=== PATIENT | male | born 1950 | race Caucasian/White ===

== ENCOUNTER 2017-04-01 14:42 | Inpatient (IN) | payer MEDICAID, OTHER ==
[2017-04-01] MEDS ORDERED: DUONEB 0.5 MG/3 MG ONE (14:56)
--- NOTE | 2017-04-01 15:01 | DR.SOBA ---
HPI - Time Seen Time seen: 15:15 - Primary Care Physician Primary Care Physician: joann - HPI Comment HPI Comment: NO FEVER. FEEL WEAK AND DEHYDRATED. HAVE LUNG CA. HIS RA O2 SAT IN 70S. NOT ON HOME OXYGEN. PATIENT HAVE ANOREXIA. - Complaints Chief Complaint Doctors Comments: PATIENT HERE IN ED VIA EMS WITH SOB, NAUSEA AND VOMITING THAT STARTED TODAY. Chief Complaint:: patient stated he has lung ca, he stated he started having shortness of breath, chest pain and vomiting. - Reviewed Nurses Notes Reviewed: Yes - Source History Provided: Patient, EMS - Mode of Arrival Mode of Arrival: EMS - Timing Onset of Chief Complaint: 04/01/17 - Duration Duration: Hours - Context Onset:: At Rest, With Light Exertion PE Risk Factors:: None (CHRONIC ILL STATE.) History of:: COPD Currently on:: Inhaled Bronchodilators Prehospital Care:: Inhaled B2 - Modifying Factors Worsens:: Exertion, Lying Flat Improves:: Inhaler - Associated Signs and Symptoms Associated Signs and Symptoms: Wheeze, Cough, Nasal Congestion, Chest Pain - If Chest Pain Quality: Sharp Location: Right Upper Chest, Right Lower Chest, Left Upper Chest, Left Lower Chest, Substernal, Chest Wall - If Cough Cough: Productive, Yellow PMH - PMH Past Medical History: Yes Past Medical History: COPD Past Medical History Comment: lung ca Past Surgical History: Yes Surgical History: Ortho Surgery - Family History History of Family Medical Conditions: Yes Family Medical History: Diabetes Mellitus, Cancer, [place] - Social History Does patient currently use any type of tobacco product: No Have you used tobacco products in the last 12 months: No Type of Tobacco Use: Cigarettes Does any household member use tobacco: No Alcohol Use: None Do you use any recreational Drugs:: No Lives With: Family Lives Where: Home - infectious screening In the last 2 months have you had wt loss of >10#?: NO Have you had fever, night sweats or hemotysis?: No Have you traveled outside the country in the last 6 months?: No Isolation: Standard ROS - Review of Systems Constitutional: Weakness, Fatigue, Loss of Appetite. negative: Chills, Diaphoresis, Fever Eyes: negative: Eye Pain, Discharge ENTM: Nose Congestion. negative: Ear Pain, Nose Discharge, Throat Pain Respiratoy: Productive Cough, Short of Breath, Wheezing. negative: Hemoptysis Cardiovascular: Chest Pain Gastrointestinal/Abdominal: Abdominal Pain, Nausea, Vomiting Genitourinary: negative: Dysuria, Frequency, Hematuria Neurological: Headache, Weakness, Dizziness, Problems Walking Musculoskeletal: Joint Pain, Muscle Pain Integumentary: Dryness Endocrine: No Symptoms Reported All Other Systems: Reviewed and Negative PE - Vital Signs Vitals: Temperature 98.6 F Pulse Rate 116 Respiratory Rate 16 Blood Pressure [Left Arm] 142/79 Blood Pressure [Right Arm] 128/82 Blood Pressure 121/80 O2 Sat by Pulse Oximetry 100 - General Limitations: No Limitations General Appearance: Alert - Head Head Exam: Normal Inspection - Eyes Eye exam: Normal Appearance, PERRL, EOMI - ENT ENT Exam: Normal Oropharynx, Normal External Ear Exam, TM's Normal Bilaterally - Neck Neck Exam: Trachea Midline. negative: Tenderness, Meningismus, Lymphadenopathy - Chest Chest Inspection: Symmetric Chest Wall Rise - Respiratory Respiratory Exam: Accessory Muscle Use, Respiratory Distress Respiratory Exam: Bilateral Wheezing, Bilateral Rhonchi, Upper Wheezing, Upper Rhonchi, Lower Wheezing, Lower Rhonchi - Cardiovascular Cardiovascular Exam: Regular Rate, Normal Rhythm, Normal Heart Sounds - Abdominal Exam Abdominal Exam: Normal Bowel Sounds, Soft. negative: Tenderness - Extremities Extremities Exam: Normal Inspection. negative: Calf Tenderness - Back Back Exam: Paraspinal Tenderness - Neurologic Neurological Exam: Alert, Oriented X3. negative: Motor Sensory Deficit - Psychiatric Psychiatric Exam: Anxious - Skin Skin Exam: Erythema MDM - Additional Information Obtained Additional Information Obtained From: Family - Differential Diagnosis Differential Diagnosis: Bronchitis, CHF, COPD, Mycardial Infarction, Pneumonia, Pneumothorax, Pulmonary embolism, Respiratory Failure Course - Treatment Treatment: SEE ORDERS, NEBRX, IV FLUIDS, IV ANTIBIOTICS AND IV SOLUMEDROL IN ED. - Reevaluation 1st: Improved - Education/Counseling Education/Counseling: Patient, Family, Education Educated On: Treatment, Diagnosis, Needs for Follow Up (SEE ORDERS. NEB TREATMENT, IV FLUIDS AND IV STERIOD AND ABTIOTICS IN ED.) ROR - Labs Reviewed Result Diagrams: 04/02/17 02:20 04/02/17 02:20 Laboratory: WBC 10.9 X10^3/uL (3.6-10.0) H 04/02/17 02:20 RBC 3.81 X10^6/uL (4.7-6.0) L 04/02/17 02:20 Hgb 9.9 g/dL (13.5-18.0) L 04/02/17 02:20 Hct 29.6 % (42.0-54.0) L 04/02/17 02:20 MCV 77.7 fL (80.0-100.0) L 04/02/17 02:20 MCH 25.9 pg (27.0-34.0) L 04/02/17 02:20 MCHC 33.3 g/dL (33.0-35.0) 04/02/17 02:20 RDW 17.1 % (11.6-16.5) H 04/02/17 02:20 Plt Count 138 X10^3/uL (150.0-450.0) L 04/02/17 02:20 Plt Count Comment Adequate (ADEQUATE) 04/02/17 02:20 MPV 7.3 fL (7.4-11.0) L 04/02/17 02:20 Neut % 96.2 % (42.0-75.0) H 04/02/17 02:20 Lymph % 1.6 % (21.0-51.0) L 04/02/17 02:20 [place] % 2.1 % (0.0-13.0) 04/02/17 02:20 Eos % 0.0 % (0.9-2.9) L 04/02/17 02:20 Baso % 0.1 % (0.2-1.0) L 04/02/17 02:20 Neut # 10.5 x10^3/uL (2.2-4.8) H 04/02/17 02:20 Lymph # 0.2 X10^3/uL (1.3-2.9) L 04/02/17 02:20 [place] # 0.2 x10^3/uL (0.3-0.8) L 04/02/17 02:20 Eos # 0.0 x10^3/uL (0.0-0.2) 04/02/17 02:20 Baso # 0.0 X10^3/uL (0.0-0.1) 04/02/17 02:20 Absolute Nucleated RBC 0.1 /100WBC 04/02/17 02:20 Total Counted 100 04/02/17 02:20 Neutrophils % (Manual) 65 % (39-76) 04/02/17 02:20 Band Neutrophils % 32 % (0-10) H 04/02/17 02:20 Lymphocytes % (Manual) 1 % (13-43) L 04/02/17 02:20 Monocytes % (Manual) 2 % (4-9) L 04/02/17 02:20 Plt Morphology Comment Normal (NORMAL) 04/02/17 02:20 RBC Morphology Abnormal (NORMAL) 04/02/17 02:20 Hypochromasia Slight A 04/02/17 02:20 Microcytosis Slight A 04/02/17 02:20 INR Target Range - 04/01/17 15:03 INR 1.13 (0.8-1.3) 04/01/17 15:03 PTT 31.2 SECONDS (22.9-36.5) 04/01/17 15:03 PTT Comment - 04/01/17 15:03 Sample Site Rb 04/01/17 23:50 ABG pH 7.370 (7.35-7.45) 04/01/17 23:50 ABG pCO2 48.0 mmHg (35.0-45.0) H 04/01/17 23:50 ABG pO2 217.0 mmHg (80.0-100.0) H 04/01/17 23:50 ABG HCO3 27.7 mmol/L (22-26) H 04/01/17 23:50 ABG O2 Saturation 100.0 % (90-100) 04/01/17 23:50 ABG Base Excess 1.8 mmol/L (-2.0-2.0) 04/01/17 23:50 Omi Test Na 04/01/17 23:50 A-a Gradient Not Reportable 04/01/17 23:50 FiO2 100 04/01/17 23:50 Blood Gas Comments Oleg abg well-mtf 04/01/17 23:50 Sodium 141 mmol/L (136-145) 04/02/17 02:20 Corrected Sodium 143 mmol/L (136-145) 04/02/17 02:20 Potassium 3.5 mmol/L (3.5-5.1) 04/02/17 02:20 Chloride 105 mmol/L (98-107) 04/02/17 02:20 Carbon Dioxide 26.0 mmol/L (21-32) 04/02/17 02:20 BUN 17 mg/dL (7-18) 04/02/17 02:20 Creatinine 1.05 mg/dL (0.70-1.30) 04/02/17 02:20 Est GFR (MDRD) Af Amer > 60 (>60) 04/02/17 02:20 Est GFR (MDRD) Non-Af > 60 (>60) 04/02/17 02:20 Glucose 166 mg/dL (65-99) H 04/02/17 02:20 Calcium 7.8 mg/dL (8.5-10.1) L 04/02/17 02:20 Corrected Calcium 9.2 mg/dL (8.5-10.1) 04/02/17 02:20 Total Bilirubin 0.30 mg/dL (0.2-1.0) 04/02/17 02:20 AST 15 Units/L (15-37) 04/02/17 02:20 ALT 11 Units/L (12-78) L 04/02/17 02:20 Alkaline Phosphatase 65 Units/L (46-116) 04/02/17 02:20 Creatine Kinase 40 Units/L (39-308) 04/02/17 02:20 CK-MB (CK-2) 1.0 ng/mL (0-4.0) 04/02/17 02:20 CK/CKMB % Calc 2.5 % (<4) 04/02/17 02:20 Troponin I 0.10 ng/mL (0-1.5) 04/02/17 02:20 B-Natriuretic Peptide 13.8 pg/mL (0-79) 04/01/17 15:10 Total Protein 5.8 g/dL (6.4-8.2) L 04/02/17 02:20 Albumin 2.3 g/dL (3.4-5.0) L 04/02/17 02:20 Globulin 3.5 g/dL (2.5-4.5) 04/02/17 02:20 Albumin/Globulin Ratio 0.7 Ratio (1.1-2.1) L 04/02/17 02:20 Specimen Type Clean catch urine 04/01/17 21:36 Urine Color Yellow (YELLOW) 04/01/17 21:36 Urine Appearance Hazy (CLEAR) 04/01/17 21:36 Urine pH 5.0 (5.0 - 8.0) 04/01/17 21:36 Ur Specific [place] 1.025 (1.000-1.030) 04/01/17 21:36 Urine Protein 3+ (NEGATIVE) 04/01/17 21:36 Urine Glucose (UA) Negative (NEGATIVE) 04/01/17 21:36 Urine Ketones 1+ (NEGATIVE) 04/01/17 21:36 Urine Occult Blood 5+ (NEGATIVE) 04/01/17 21:36 Urine Nitrite Negative (NEGATIVE) 04/01/17 21:36 Urine Bilirubin Negative (NEGATIVE) 04/01/17 21:36 Urine Urobilinogen Normal (NORMAL) 04/01/17 21:36 Ur Leukocyte Esterase 2+ (NEGATIVE) 04/01/17 21:36 Urine RBC 40-50 /HPF (NEGATIVE) 04/01/17 21:36 Urine WBC 20-30 /HPF (NEGATIVE) 04/01/17 21:36 Ur Squamous Epith Cells Rare /HPF (NEGATIVE) 04/01/17 21:36 Calcium Oxalate Crystal Few /HPF (NEGATIVE) 04/01/17 21:36 Amorphous Sediment 1+ /HPF (NEGATIVE) 04/01/17 21:36 Urine Bacteria 1+ /HPF (NEGATIVE) 04/01/17 21:36 Urine Mucus Few /HPF (NEGATIVE) 04/01/17 21:36 Ur Culture Indicated? Yes/culture set up 04/01/17 21:36 - XRAY XRAY Interpreted by: Radiologist XRAY Findings: REPORT DISCUSS WITH PATIENT. - EKG Rhythm: ST (EKG NOTED) - Diagnosis Discharge Problem: COPD exacerbation, Bronchitis, Respiratory disease, Gastroenteritis, Dehydration Chest pain Qualifiers: Chest pain type: intercostal pain Qualified Code(s): R07.82 - Intercostal pain - Discharge Plan Disposition: 09 ADMITTED INPATIENT Condition: Stable - Follow ups/Referrals - Instructions
[2017-04-01 15:02] VITALS: BMI 16.5
[2017-04-01] MEDS ORDERED: DUONEB 0.5 MG/3 MG NEB ONE (15:06)
[2017-04-01] MEDS: NS 1000 ML 1,000 ML IV SCH ×2 (15:19→23:00)
[2017-04-01 15:34] LABS: BASOPHILS % (AUTO) 0.2 % (0.2-1.0); EOSINOPHILS # (AUTO) 0.2 x10^3/uL (0.0-0.2); EOSINOPHILS % (AUTO) 1.4 % (0.9-2.9); HEMOGLOBIN 11.6 g/dL (13.5-18.0); LYMPHOCYTES # (AUTO) 1.7 X10^3/uL (1.3-2.9); LYMPHOCYTES % (AUTO) 12.2 % (21.0-51.0); MEAN CORPUSCULAR HGB CONC 32.3 g/dL (33.0-35.0); MEAN CORPUSCULAR VOLUME 77.6 fL (80.0-100.0); MEAN PLATELET VOLUME 7.1 fL (7.4-11.0); MONOCYTES # (AUTO) 0.5 x10^3/uL (0.3-0.8); MONOCYTES % (AUTO) 3.7 % (0.0-13.0); NEUTROPHILS # (AUTO) 11.5 x10^3/uL (2.2-4.8); NEUTROPHILS % (AUTO) 82.5 % (42.0-75.0); PLATELET COUNT 219 X10^3/uL (150.0-450.0); RED BLOOD COUNT 4.64 X10^6/uL (4.7-6.0); RED CELL DISTRIBUTION WIDTH 17.7 % (11.6-16.5)
[2017-04-01 15:46] LABS: HYPOCHROMASIA 1+; MICROCYTOSIS 1+; PLATELET MORPHOLOGY COMMENT NORMAL (NORMAL)
[2017-04-01 16:00] LABS: ALANINE AMINOTRANSFERASE 13 Units/L (12-78); ALBUMIN 2.7 g/dL (3.4-5.0); ALKALINE PHOSPHATASE 87 Units/L (46-116); ASPARTATE AMINO TRANSFERASE 15 Units/L (15-37); BLOOD UREA NITROGEN 16 mg/dL (7-18); CALCIUM 8.5 mg/dL (8.5-10.1); CARBON DIOXIDE 26.6 mmol/L (21-32); CHLORIDE 106 mmol/L (98-107); CKMB % 4.2 % (<4); COR CA(FOR HYPOALB) 9.5 mg/dL (8.5-10.1); COR NA(FOR HYPERGLY) 144 mmol/L (136-145); CREATINE KINASE 24 Units/L (39-308); CREATINE KINASE MB < 1.0 ng/mL (0-4.0); CREATININE 1.05 mg/dL (0.70-1.30); SODIUM 142 mmol/L (136-145); TOTAL PROTEIN 6.7 g/dL (6.4-8.2); TROPONIN I < 0.02 ng/mL (0-1.5); eGFR BLACK RACES > 60 (>60); eGFR NON BLACK RACES > 60 (>60)
[2017-04-01 16:01] LABS: B-TYPE NATRIURETIC PEPTIDE 13.8 pg/mL (0-79)
[2017-04-01 16:02] LABS: GLUCOSE 193 mg/dL (65-99)
--- NOTE | 2017-04-01 16:25 | RAD ---
HISTORY: 67-year-old male with chest pain. Study: Frontal view of the chest. Comparison: CT thorax June 15, 2015, chest radiographs July 20, 2016. Findings: Right chest wall chemo port via IJ approach is stable. Surgical clips overlie left sherman thorax. The trachea is midline. The cardiac silhouette is unremarkable. Focal consolidation within the sup erior segment left lower lobe, likely secondary to known mass lesion. Compensatory hyperinflation of the right sherman thorax is observed. No other areas of consolidation, effusion or pneumothorax. Soft tissues are unremarkable. Osseus structures are unremarkable. IMPRESSION: 1. Focal consolidation in the superior aspect of the left lower lobe, likely secondary to known mas s with compensatory hyperinflation of the right sherman thorax and no other focal consolidation, effusi on or pneumothorax. Reported By:
[2017-04-01] MEDS ORDERED: DUONEB 0.5 MG/3 MG NEB SCH (17:00)
[2017-04-01 17:43] LABS: ABG BASE EXCESS -1.6 mmol/L (-2.0-2.0); ABG HCO3 25.2 mmol/L (22-26)
[2017-04-01] MEDS: LEVAQUIN PREMIX IV 500 MG 500 MG/100 ML BAG IV SCH (17:56)
[2017-04-01] MEDS: FORTAZ or TAZICEF INJ 1 GM in NS 50 ML IV + SPIKE MINIBAG* 50 ML IV SCH ×2 (17:56→23:06)
[2017-04-01] MEDS ORDERED: PROVENTIL NEB TX 0.083% 2.5MG/ 3ML NEB PRN (19:11)
[2017-04-01] MEDS ORDERED: ZOFRAN INJ 4 MG VIAL IVP PRN (19:41)
[2017-04-01] MEDS ORDERED: MIRTAZAPINE 30 MG PO SCH (21:00)
[2017-04-01] MEDS: BROVANA IN SCH (21:02)
[2017-04-01] MEDS: PULMICORT NEB TX 0.5 MG NEB SCH (21:02)
[2017-04-01 21:08] LABS: CKMB % 2.7 % (<4); TROPONIN I 0.19 ng/mL (0-1.5)
[2017-04-01] MEDS: HYCODAN SYRUP PO SCH (21:22)
[2017-04-01] MEDS: REMERON PO SCH (21:22)
[2017-04-01] MEDS ORDERED: SOLU-Medrol 125 MG VIAL IVP ONE (21:43)
[2017-04-01 21:53] LABS: BILIRUBIN,URINE NEGATIVE (NEGATIVE); BLOOD/HEMOGLOBIN,URINE 5+ (NEGATIVE); GLUCOSE, URINE NEGATIVE (NEGATIVE); KETONES,URINE 1+ (NEGATIVE); LEUKOCYTE ESTERASE ,URINE 2+ (NEGATIVE); NITRITES,URINE NEGATIVE (NEGATIVE); PROTEIN,URINE 3+ (NEGATIVE); UROBILINOGEN,URINE NORMAL (NORMAL)
[2017-04-01 22:04] LABS: AMORPHOUS SEDIMENT,UR 1+ /HPF (NEGATIVE); APPEARANCE,URINE HAZY (CLEAR); BACTERIA,URINE 1+ /HPF (NEGATIVE); CALCIUM OXALATE CRYSTALS,UR FEW /HPF (NEGATIVE); COLOR,URINE YELLOW (YELLOW); MUCUS,URINE FEW /HPF (NEGATIVE); RBC,URINE 40-50 /HPF (NEGATIVE); SQUAMOUS EPITHELIAL CELL,UR RARE /HPF (NEGATIVE)
[2017-04-01] MEDS: SOLU-Medrol 125 MG VIAL IVP SCH (23:07)
[2017-04-02 00:11] LABS: ABG BASE EXCESS 1.8 mmol/L (-2.0-2.0); ABG HCO3 27.7 mmol/L (22-26); FRACTIONATED INSPIRED OXYGEN 100
[2017-04-02] MEDS: DUONEB 0.5 MG/3 MG NEB SCH ×4 (00:59→16:59)
[2017-04-02] MEDS ORDERED: DUONEB 0.5 MG/3 MG NEB SCH ×2 (01:00)
[2017-04-02 03:28] LABS: CKMB % 2.5 % (<4); TROPONIN I 0.1 ng/mL (0-1.5)
[2017-04-02 04:54] LABS: ALANINE AMINOTRANSFERASE 11 Units/L (12-78); ALBUMIN 2.3 g/dL (3.4-5.0); ALKALINE PHOSPHATASE 65 Units/L (46-116); ASPARTATE AMINO TRANSFERASE 15 Units/L (15-37); BLOOD UREA NITROGEN 17 mg/dL (7-18); CALCIUM 7.8 mg/dL (8.5-10.1); CHLORIDE 105 mmol/L (98-107); COR CA(FOR HYPOALB) 9.2 mg/dL (8.5-10.1); COR NA(FOR HYPERGLY) 143 mmol/L (136-145); CREATININE 1.05 mg/dL (0.70-1.30); GLUCOSE 166 mg/dL (65-99); SODIUM 141 mmol/L (136-145); TOTAL PROTEIN 5.8 g/dL (6.4-8.2); eGFR BLACK RACES > 60 (>60); eGFR NON BLACK RACES > 60 (>60)
[2017-04-02 04:59] LABS: BASOPHILS % (AUTO) 0.1 % (0.2-1.0); HEMATOCRIT 29.6 % (42.0-54.0); HEMOGLOBIN 9.9 g/dL (13.5-18.0); LYMPHOCYTES # (AUTO) 0.2 X10^3/uL (1.3-2.9); LYMPHOCYTES % (AUTO) 1.6 % (21.0-51.0); MEAN CORPUSCULAR HEMOGLOBIN 25.9 pg (27.0-34.0); MEAN CORPUSCULAR HGB CONC 33.3 g/dL (33.0-35.0); MEAN CORPUSCULAR VOLUME 77.7 fL (80.0-100.0); MEAN PLATELET VOLUME 7.3 fL (7.4-11.0); MONOCYTES # (AUTO) 0.2 x10^3/uL (0.3-0.8); MONOCYTES % (AUTO) 2.1 % (0.0-13.0); NEUTROPHILS # (AUTO) 10.5 x10^3/uL (2.2-4.8); NEUTROPHILS % (AUTO) 96.2 % (42.0-75.0); PLATELET COUNT 138 X10^3/uL (150.0-450.0); RED BLOOD COUNT 3.81 X10^6/uL (4.7-6.0); RED CELL DISTRIBUTION WIDTH 17.1 % (11.6-16.5); WHITE BLOOD COUNT 10.9 X10^3/uL (3.6-10.0)
[2017-04-02 05:23] LABS: BAND NEUTROPHILS % 32 % (0-10); HYPOCHROMASIA SLIGHT; PLATELET MORPHOLOGY COMMENT NORMAL (NORMAL)
[2017-04-02 05:24] LABS: MICROCYTOSIS SLIGHT
[2017-04-02] MEDS: FORTAZ or TAZICEF INJ 1 GM in NS 50 ML IV + SPIKE MINIBAG* 50 ML IV SCH ×3 (05:55→22:00)
[2017-04-02] MEDS: SOLU-Medrol 125 MG VIAL IVP SCH ×3 (05:55→22:05)
[2017-04-02] MEDS: AFATINIB DIMALEATE 40 MG PO SCH ×2 (07:15→08:28)
--- NOTE | 2017-04-02 07:19 | RAD ---
HISTORY: Shortness of breath Study: Chest one view Comparison: April 01, 2017 Findings: There is a port present on the right. The heart is within normal limits in size. The right lung is c lear. Perihilar consolidation is present in the left upper lobe likely secondary to the patient's kn own left lung mass with some surround infiltrate and atelectasis. Pleural-parenchymal scarring is pr esent in the left lung base. No definite pleural effusions are identified. The bony thorax is unrema rkable. IMPRESSION: Left perihilar consolidation likely due to the patient's known lung mass with some surrounding infil trate possibly post obstructive pneumonia Pleural-parenchymal scarring left lung base Reported By:
[2017-04-02] MEDS: PULMICORT NEB TX 0.5 MG NEB SCH ×2 (08:42→20:42)
[2017-04-02] MEDS: BROVANA IN SCH ×2 (08:42→20:41)
[2017-04-02] MEDS: NS 1000 ML 1,000 ML IV SCH ×2 (09:23→16:14)
[2017-04-02] MEDS: LEVAQUIN PREMIX IV 500 MG 500 MG/100 ML BAG IV SCH (09:24)
[2017-04-02] MEDS: ARIMIDEX PO SCH (09:24)
[2017-04-02] MEDS: LIPITOR TAB 10 MG PO SCH ×2 (09:24→09:25)
[2017-04-02] MEDS: HYCODAN SYRUP PO SCH ×2 (09:24→20:31)
[2017-04-02] MEDS ORDERED: MAALOX or MYLANTA PO PRN (16:30)
--- NOTE | 2017-04-02 17:57 | PCM.PROG ---
Progress Note - Progress Note for Day of Date: 04/02/17 - Subjective Subjective: 67WM ADMITTED ON SUNDAY WITH RESP DISTRESS, COPD EXACERBATION. PT HAS HX OF SEVERE COPD AND LUNG CA. PLAN TO CONTINUE IV ABTX, RESP THERAPY AND SPUTUM CULTURES. REPEAT AM LABS - Past Medical Family Social History Past Med/Fam/Surg Hx: No changes since H&P Allergies: Allergies No Known Drug Allergies Allergy (Verified 04/01/17 15:23) - Review of Systems ROS: No change since H&P - Vital Signs and I&O's Vital Signs: Temperature 98.9 F Pulse Rate [Left Brachial] 82 Pulse Rate 92 Respiratory Rate 17 Blood Pressure [Left Arm] 97/57 Blood Pressure [Right Arm] 151/87 O2 Sat by Pulse Oximetry 97 Intake and Output: Intake & Output 03/31/17 04/01/17 04/02/17 04/03/17 11:59 11:59 11:59 11:59 Intake Total 3161 1912 Output Total 750 200 Balance 2411 1712 - Physical Exam Oriented: Normal Eyes: Normal Ear: Normal Nose: Normal Throat: Dry Respiratory: Diminished Cardiovascular: Tachycardia : Normal Auscultation: Bowel Sounds: Normal Palpation: Normal Tenderness: Normal Skin: Decreased Turgur Musculoskeletal: Back:Lumbar Psychiatric: Anxiety Speech Pattern: Clear - Laboratory and Diagnostics Result Diagrams: 04/02/17 02:20 04/02/17 02:20 Labs: 04/01/17 21:36 Urine,Clean Catch Urine Culture - Preliminary Laboratory WBC 10.9 X10^3/uL (3.6-10.0) H 04/02/17 02:20 RBC 3.81 X10^6/uL (4.7-6.0) L 04/02/17 02:20 Hgb 9.9 g/dL (13.5-18.0) L 04/02/17 02:20 Hct 29.6 % (42.0-54.0) L 04/02/17 02:20 MCV 77.7 fL (80.0-100.0) L 04/02/17 02:20 MCH 25.9 pg (27.0-34.0) L 04/02/17 02:20 MCHC 33.3 g/dL (33.0-35.0) 04/02/17 02:20 RDW 17.1 % (11.6-16.5) H 04/02/17 02:20 Plt Count 138 X10^3/uL (150.0-450.0) L 04/02/17 02:20 Plt Count Comment Adequate (ADEQUATE) 04/02/17 02:20 MPV 7.3 fL (7.4-11.0) L 04/02/17 02:20 Neut % 96.2 % (42.0-75.0) H 04/02/17 02:20 Lymph % 1.6 % (21.0-51.0) L 04/02/17 02:20 [place] % 2.1 % (0.0-13.0) 04/02/17 02:20 Eos % 0.0 % (0.9-2.9) L 04/02/17 02:20 Baso % 0.1 % (0.2-1.0) L 04/02/17 02:20 Neut # 10.5 x10^3/uL (2.2-4.8) H 04/02/17 02:20 Lymph # 0.2 X10^3/uL (1.3-2.9) L 04/02/17 02:20 [place] # 0.2 x10^3/uL (0.3-0.8) L 04/02/17 02:20 Eos # 0.0 x10^3/uL (0.0-0.2) 04/02/17 02:20 Baso # 0.0 X10^3/uL (0.0-0.1) 04/02/17 02:20 Absolute Nucleated RBC 0.1 /100WBC 04/02/17 02:20 Total Counted 100 04/02/17 02:20 Neutrophils % (Manual) 65 % (39-76) 04/02/17 02:20 Band Neutrophils % 32 % (0-10) H 04/02/17 02:20 Lymphocytes % (Manual) 1 % (13-43) L 04/02/17 02:20 Monocytes % (Manual) 2 % (4-9) L 04/02/17 02:20 Plt Morphology Comment Normal (NORMAL) 04/02/17 02:20 RBC Morphology Abnormal (NORMAL) 04/02/17 02:20 Hypochromasia Slight A 04/02/17 02:20 Microcytosis Slight A 04/02/17 02:20 INR Target Range - 04/01/17 15:03 INR 1.13 (0.8-1.3) 04/01/17 15:03 PTT 31.2 SECONDS (22.9-36.5) 04/01/17 15:03 PTT Comment - 04/01/17 15:03 Sample Site Rbra 04/01/17 23:50 ABG pH 7.370 (7.35-7.45) 04/01/17 23:50 ABG pCO2 48.0 mmHg (35.0-45.0) H 04/01/17 23:50 ABG pO2 217.0 mmHg (80.0-100.0) H 04/01/17 23:50 ABG HCO3 27.7 mmol/L (22-26) H 04/01/17 23:50 ABG O2 Saturation 100.0 % (90-100) 04/01/17 23:50 ABG Base Excess 1.8 mmol/L (-2.0-2.0) 04/01/17 23:50 Omi Test Na 04/01/17 23:50 A-a Gradient Not Reportable 04/01/17 23:50 FiO2 100 04/01/17 23:50 Blood Gas Comments Oleg abg well-mtf 04/01/17 23:50 Sodium 141 mmol/L (136-145) 04/02/17 02:20 Corrected Sodium 143 mmol/L (136-145) 04/02/17 02:20 Potassium 3.5 mmol/L (3.5-5.1) 04/02/17 02:20 Chloride 105 mmol/L (98-107) 04/02/17 02:20 Carbon Dioxide 26.0 mmol/L (21-32) 04/02/17 02:20 BUN 17 mg/dL (7-18) 04/02/17 02:20 Creatinine 1.05 mg/dL (0.70-1.30) 04/02/17 02:20 Est GFR (MDRD) Af Amer > 60 (>60) 04/02/17 02:20 Est GFR (MDRD) Non-Af > 60 (>60) 04/02/17 02:20 Glucose 166 mg/dL (65-99) H 04/02/17 02:20 Calcium 7.8 mg/dL (8.5-10.1) L 04/02/17 02:20 Corrected Calcium 9.2 mg/dL (8.5-10.1) 04/02/17 02:20 Total Bilirubin 0.30 mg/dL (0.2-1.0) 04/02/17 02:20 AST 15 Units/L (15-37) 04/02/17 02:20 ALT 11 Units/L (12-78) L 04/02/17 02:20 Alkaline Phosphatase 65 Units/L (46-116) 04/02/17 02:20 Creatine Kinase 40 Units/L (39-308) 04/02/17 02:20 CK-MB (CK-2) 1.0 ng/mL (0-4.0) 04/02/17 02:20 CK/CKMB % Calc 2.5 % (<4) 04/02/17 02:20 Troponin I 0.10 ng/mL (0-1.5) 04/02/17 02:20 B-Natriuretic Peptide 13.8 pg/mL (0-79) 04/01/17 15:10 Total Protein 5.8 g/dL (6.4-8.2) L 04/02/17 02:20 Albumin 2.3 g/dL (3.4-5.0) L 04/02/17 02:20 Globulin 3.5 g/dL (2.5-4.5) 04/02/17 02:20 Albumin/Globulin Ratio 0.7 Ratio (1.1-2.1) L 04/02/17 02:20 Specimen Type Clean catch urine 04/01/17 21:36 Urine Color Yellow (YELLOW) 04/01/17 21:36 Urine Appearance Hazy (CLEAR) 04/01/17 21:36 Urine pH 5.0 (5.0 - 8.0) 04/01/17 21:36 Ur Specific [place] 1.025 (1.000-1.030) 04/01/17 21:36 Urine Protein 3+ (NEGATIVE) 04/01/17 21:36 Urine Glucose (UA) Negative (NEGATIVE) 04/01/17 21:36 Urine Ketones 1+ (NEGATIVE) 04/01/17 21:36 Urine Occult Blood 5+ (NEGATIVE) 04/01/17 21:36 Urine Nitrite Negative (NEGATIVE) 04/01/17 21:36 Urine Bilirubin Negative (NEGATIVE) 04/01/17 21:36 Urine Urobilinogen Normal (NORMAL) 04/01/17 21:36 Ur Leukocyte Esterase 2+ (NEGATIVE) 04/01/17 21:36 Urine RBC 40-50 /HPF (NEGATIVE) 04/01/17 21:36 Urine WBC 20-30 /HPF (NEGATIVE) 04/01/17 21:36 Ur Squamous Epith Cells Rare /HPF (NEGATIVE) 04/01/17 21:36 Calcium Oxalate Crystal Few /HPF (NEGATIVE) 04/01/17 21:36 Amorphous Sediment 1+ /HPF (NEGATIVE) 04/01/17 21:36 Urine Bacteria 1+ /HPF (NEGATIVE) 04/01/17 21:36 Urine Mucus Few /HPF (NEGATIVE) 04/01/17 21:36 Ur Culture Indicated? Yes/culture set up 04/01/17 21:36 - Plan (1) COPD exacerbation Status: Acute Plan: CONTINUE RESP THERAPY, BIPAP, SUPPLEMENTAL O2, V ATBX, SPUTUM CULTURE PENDING, SUPPORTIVE CARE, REPEAT AM LABS CXR. CARDIAC MONITORING (2) Respiratory disease Status: Acute (3) Lung cancer, lower lobe Status: Acute Qualifiers: Laterality: L
[2017-04-02] MEDS: REMERON PO SCH (20:31)
[2017-04-03] MEDS: DUONEB 0.5 MG/3 MG NEB SCH ×4 (01:01→17:01)
[2017-04-03] MEDS: NS 1000 ML 1,000 ML IV SCH ×5 (01:08→21:02)
[2017-04-03 05:48] LABS: ALANINE AMINOTRANSFERASE 11 Units/L (12-78); ALBUMIN 1.9 g/dL (3.4-5.0); ALKALINE PHOSPHATASE 55 Units/L (46-116); ASPARTATE AMINO TRANSFERASE 14 Units/L (15-37); BLOOD UREA NITROGEN 18 mg/dL (7-18); CALCIUM 7.6 mg/dL (8.5-10.1); CARBON DIOXIDE 25.6 mmol/L (21-32); CHLORIDE 111 mmol/L (98-107); COR CA(FOR HYPOALB) 9.3 mg/dL (8.5-10.1); COR NA(FOR HYPERGLY) 145 mmol/L (136-145); CREATININE 0.75 mg/dL (0.70-1.30); GLUCOSE 165 mg/dL (65-99); SODIUM 143 mmol/L (136-145); TOTAL PROTEIN 5.2 g/dL (6.4-8.2); eGFR BLACK RACES > 60 (>60); eGFR NON BLACK RACES > 60 (>60)
[2017-04-03 06:04] LABS: BASOPHILS % (AUTO) 0.1 % (0.2-1.0); HEMATOCRIT 26.3 % (42.0-54.0); HEMOGLOBIN 8.8 g/dL (13.5-18.0); LYMPHOCYTES # (AUTO) 0.2 X10^3/uL (1.3-2.9); LYMPHOCYTES % (AUTO) 2.2 % (21.0-51.0); MEAN CORPUSCULAR HGB CONC 33.6 g/dL (33.0-35.0); MEAN CORPUSCULAR VOLUME 77.3 fL (80.0-100.0); MEAN PLATELET VOLUME 7.2 fL (7.4-11.0); MONOCYTES # (AUTO) 0.4 x10^3/uL (0.3-0.8); MONOCYTES % (AUTO) 4.8 % (0.0-13.0); NEUTROPHILS # (AUTO) 8.2 x10^3/uL (2.2-4.8); NEUTROPHILS % (AUTO) 92.9 % (42.0-75.0); PLATELET COUNT 143 X10^3/uL (150.0-450.0); RED CELL DISTRIBUTION WIDTH 17.4 % (11.6-16.5); WHITE BLOOD COUNT 8.8 X10^3/uL (3.6-10.0)
[2017-04-03] MEDS: FORTAZ or TAZICEF INJ 1 GM in NS 50 ML IV + SPIKE MINIBAG* 50 ML IV SCH ×3 (06:13→21:54)
[2017-04-03] MEDS: SOLU-Medrol 125 MG VIAL IVP SCH ×2 (06:15→14:36)
[2017-04-03] MEDS: AFATINIB DIMALEATE 40 MG PO SCH ×2 (06:17→08:25)
[2017-04-03 06:43] LABS: PLATELET MORPHOLOGY COMMENT NORMAL (NORMAL)
--- NOTE | 2017-04-03 07:23 | RAD ---
HISTORY: Respiratory failure Study: Chest one view Comparison: April 02, 2017 Findings: The patient is rotated to the left. There is a port present on the right. The heart is within normal limits in size. No congestive heart failure is noted. The right lung is clear. Once again noted is perihilar consolidation in the left upper lobe with some surrounding infiltrate likely representing the patient's known lung mass and some postobstructive pneumonia. The appearance is unchanged when c ompared with the prior examination peer E there is pleural-parenchymal scarring in the left lung bas e and also likely a left pleural effusion which obscures the medial hemidiaphragm. The bony thorax i s unremarkable. IMPRESSION: No significant change from the prior examination Reported By:
[2017-04-03] MEDS: HYCODAN SYRUP PO SCH ×2 (08:24→21:02)
[2017-04-03] MEDS: LEVAQUIN PREMIX IV 500 MG 500 MG/100 ML BAG IV SCH (08:24)
[2017-04-03] MEDS: ARIMIDEX PO SCH (08:24)
[2017-04-03] MEDS: BROVANA IN SCH ×2 (09:00→21:09)
[2017-04-03] MEDS: PULMICORT NEB TX 0.5 MG NEB SCH ×2 (09:01→21:09)
--- NOTE | 2017-04-03 14:12 | PCM.PROG ---
Progress Note - Progress Note for Day of Date: 04/03/17 - Subjective Subjective: 67WM ADMITTED ON SUNDAY WITH RESP DISTRESS, COPD EXACERBATION. PT HAS HX OF SEVERE COPD AND LUNG CA. PT CO NAUSEA AND POOR APPETITE. PT WHEEZING IMPROVED FROM SUNDAY ASSESSMENT. PLAN TO CONTINUE IV ABTX, RESP THERAPY AND SPUTUM CULTURES. REPEAT AM LABS - Past Medical Family Social History Past Med/Fam/Surg Hx: No changes since H&P Allergies: Allergies No Known Drug Allergies Allergy (Verified 04/01/17 15:23) - Review of Systems ROS: No change since H&P - Vital Signs and I&O's Vital Signs: Temperature 98.3 F Pulse Rate [Left Brachial] 95 Pulse Rate 78 Respiratory Rate 15 Blood Pressure [Left Arm] 108/78 Blood Pressure [Right Arm] 151/87 O2 Sat by Pulse Oximetry 97 Intake and Output: Intake & Output 04/01/17 04/02/17 04/03/17 04/04/17 11:59 11:59 11:59 11:59 Intake Total 3161 4752 480 Output Total 750 600 800 Balance 2411 4152 -320 - Physical Exam Oriented: Normal Eyes: Normal Ear: Normal Nose: Normal Throat: Dry Respiratory: Diminished Cardiovascular: Tachycardia : Normal Auscultation: Bowel Sounds: Normal Tenderness: Normal Skin: Decreased Turgur Musculoskeletal: Back:Lumbar Psychiatric: Anxiety Speech Pattern: Clear - Laboratory and Diagnostics Result Diagrams: 04/03/17 03:40 04/03/17 03:40 Labs: 04/01/17 21:36 Urine,Clean Catch Urine Culture - Final Laboratory WBC 8.8 X10^3/uL (3.6-10.0) 04/03/17 03:40 RBC 3.40 X10^6/uL (4.7-6.0) L 04/03/17 03:40 Hgb 8.8 g/dL (13.5-18.0) L 04/03/17 03:40 Hct 26.3 % (42.0-54.0) L 04/03/17 03:40 MCV 77.3 fL (80.0-100.0) L 04/03/17 03:40 MCH 26.0 pg (27.0-34.0) L 04/03/17 03:40 MCHC 33.6 g/dL (33.0-35.0) 04/03/17 03:40 RDW 17.4 % (11.6-16.5) H 04/03/17 03:40 Plt Count 143 X10^3/uL (150.0-450.0) L 04/03/17 03:40 Plt Count Comment Adequate (ADEQUATE) 04/03/17 03:40 MPV 7.2 fL (7.4-11.0) L 04/03/17 03:40 Neut % 92.9 % (42.0-75.0) H 04/03/17 03:40 Lymph % 2.2 % (21.0-51.0) L 04/03/17 03:40 [place] % 4.8 % (0.0-13.0) 04/03/17 03:40 Eos % 0.0 % (0.9-2.9) L 04/03/17 03:40 Baso % 0.1 % (0.2-1.0) L 04/03/17 03:40 Neut # 8.2 x10^3/uL (2.2-4.8) H 04/03/17 03:40 Lymph # 0.2 X10^3/uL (1.3-2.9) L 04/03/17 03:40 [place] # 0.4 x10^3/uL (0.3-0.8) 04/03/17 03:40 Eos # 0.0 x10^3/uL (0.0-0.2) 04/03/17 03:40 Baso # 0.0 X10^3/uL (0.0-0.1) 04/03/17 03:40 Absolute Nucleated RBC 0.0 /100WBC 04/03/17 03:40 Total Counted 100 04/03/17 03:40 Neutrophils % (Manual) 91 % (39-76) H 04/03/17 03:40 Band Neutrophils % 32 % (0-10) H 04/02/17 02:20 Lymphocytes % (Manual) 5 % (13-43) L 04/03/17 03:40 Monocytes % (Manual) 3 % (4-9) L 04/03/17 03:40 Eosinophils % (Manual) 1 % (0-6) 04/03/17 03:40 Plt Morphology Comment Normal (NORMAL) 04/03/17 03:40 RBC Morphology Normal (NORMAL) 04/03/17 03:40 Hypochromasia Slight A 04/02/17 02:20 Microcytosis Slight A 04/02/17 02:20 INR Target Range - 04/01/17 15:03 INR 1.13 (0.8-1.3) 04/01/17 15:03 PTT 31.2 SECONDS (22.9-36.5) 04/01/17 15:03 PTT Comment - 04/01/17 15:03 Sample Site Rbra 04/01/17 23:50 ABG pH 7.370 (7.35-7.45) 04/01/17 23:50 ABG pCO2 48.0 mmHg (35.0-45.0) H 04/01/17 23:50 ABG pO2 217.0 mmHg (80.0-100.0) H 04/01/17 23:50 ABG HCO3 27.7 mmol/L (22-26) H 04/01/17 23:50 ABG O2 Saturation 100.0 % (90-100) 04/01/17 23:50 ABG Base Excess 1.8 mmol/L (-2.0-2.0) 04/01/17 23:50 Omi Test Na 04/01/17 23:50 A-a Gradient Not Reportable 04/01/17 23:50 FiO2 100 04/01/17 23:50 Blood Gas Comments Oleg abg well-mtf 04/01/17 23:50 Sodium 143 mmol/L (136-145) 04/03/17 03:40 Corrected Sodium 145 mmol/L (136-145) 04/03/17 03:40 Potassium 3.6 mmol/L (3.5-5.1) 04/03/17 03:40 Chloride 111 mmol/L (98-107) H 04/03/17 03:40 Carbon Dioxide 25.6 mmol/L (21-32) 04/03/17 03:40 BUN 18 mg/dL (7-18) 04/03/17 03:40 Creatinine 0.75 mg/dL (0.70-1.30) 04/03/17 03:40 Est GFR (MDRD) Af Amer > 60 (>60) 04/03/17 03:40 Est GFR (MDRD) Non-Af > 60 (>60) 04/03/17 03:40 Glucose 165 mg/dL (65-99) H 04/03/17 03:40 Calcium 7.6 mg/dL (8.5-10.1) L 04/03/17 03:40 Corrected Calcium 9.3 mg/dL (8.5-10.1) 04/03/17 03:40 Total Bilirubin 0.20 mg/dL (0.2-1.0) 04/03/17 03:40 AST 14 Units/L (15-37) L 04/03/17 03:40 ALT 11 Units/L (12-78) L 04/03/17 03:40 Alkaline Phosphatase 55 Units/L (46-116) 04/03/17 03:40 Creatine Kinase 40 Units/L (39-308) 04/02/17 02:20 CK-MB (CK-2) 1.0 ng/mL (0-4.0) 04/02/17 02:20 CK/CKMB % Calc 2.5 % (<4) 04/02/17 02:20 Troponin I 0.10 ng/mL (0-1.5) 04/02/17 02:20 B-Natriuretic Peptide 13.8 pg/mL (0-79) 04/01/17 15:10 Total Protein 5.2 g/dL (6.4-8.2) L 04/03/17 03:40 Albumin 1.9 g/dL (3.4-5.0) L 04/03/17 03:40 Globulin 3.3 g/dL (2.5-4.5) 04/03/17 03:40 Albumin/Globulin Ratio 0.6 Ratio (1.1-2.1) L 04/03/17 03:40 Specimen Type Clean catch urine 04/01/17 21:36 Urine Color Yellow (YELLOW) 04/01/17 21:36 Urine Appearance Hazy (CLEAR) 04/01/17 21:36 Urine pH 5.0 (5.0 - 8.0) 04/01/17 21:36 Ur Specific [employer] [place] 1.025 (1.000-1.030) 04/01/17 21:36 Urine Protein 3+ (NEGATIVE) 04/01/17 21:36 Urine Glucose (UA) Negative (NEGATIVE) 04/01/17 21:36 Urine Ketones 1+ (NEGATIVE) 04/01/17 21:36 Urine Occult Blood 5+ (NEGATIVE) 04/01/17 21:36 Urine Nitrite Negative (NEGATIVE) 04/01/17 21:36 Urine Bilirubin Negative (NEGATIVE) 04/01/17 21:36 Urine Urobilinogen Normal (NORMAL) 04/01/17 21:36 Ur Leukocyte Esterase 2+ (NEGATIVE) 04/01/17 21:36 Urine RBC 40-50 /HPF (NEGATIVE) 04/01/17 21:36 Urine WBC 20-30 /HPF (NEGATIVE) 04/01/17 21:36 Ur Squamous Epith Cells Rare /HPF (NEGATIVE) 04/01/17 21:36 Calcium Oxalate Crystal Few /HPF (NEGATIVE) 04/01/17 21:36 Amorphous Sediment 1+ /HPF (NEGATIVE) 04/01/17 21:36 Urine Bacteria 1+ /HPF (NEGATIVE) 04/01/17 21:36 Urine Mucus Few /HPF (NEGATIVE) 04/01/17 21:36 Ur Culture Indicated? Yes/culture set up 04/01/17 21:36 - Plan (1) COPD exacerbation Status: Acute Plan: CONTINUE RESP THERAPY, BIPAP, SUPPLEMENTAL O2, V ATBX, SPUTUM CULTURE PENDING, SUPPORTIVE CARE, REPEAT AM LABS CXR. CARDIAC MONITORING (2) Respiratory disease Status: Acute (3) Lung cancer, lower lobe Status: Chronic Qualifiers: Laterality: L Plan: CONTINUE CURRENT MEDS
[2017-04-03] MEDS ORDERED: LIPITOR TAB 10 MG PO SCH (21:00)
[2017-04-03] MEDS: REMERON PO SCH (21:02)
[2017-04-04] MEDS: DUONEB 0.5 MG/3 MG NEB SCH ×2 (00:40→05:13)
[2017-04-04] MEDS: NS 1000 ML 1,000 ML IV SCH ×3 (04:50→17:03)
[2017-04-04 05:44] LABS: BASOPHILS % (AUTO) 0 % (0.2-1.0); EOSINOPHILS % (AUTO) 0.6 % (0.9-2.9); HEMATOCRIT 27.2 % (42.0-54.0); HEMOGLOBIN 9.1 g/dL (13.5-18.0); LYMPHOCYTES # (AUTO) 0.4 X10^3/uL (1.3-2.9); LYMPHOCYTES % (AUTO) 6.6 % (21.0-51.0); MEAN CORPUSCULAR HGB CONC 33.5 g/dL (33.0-35.0); MEAN CORPUSCULAR VOLUME 77.5 fL (80.0-100.0); MONOCYTES # (AUTO) 0.3 x10^3/uL (0.3-0.8); MONOCYTES % (AUTO) 5.1 % (0.0-13.0); NEUTROPHILS # (AUTO) 5.5 x10^3/uL (2.2-4.8); NEUTROPHILS % (AUTO) 87.7 % (42.0-75.0); PLATELET COUNT 149 X10^3/uL (150.0-450.0); RED BLOOD COUNT 3.51 X10^6/uL (4.7-6.0); RED CELL DISTRIBUTION WIDTH 17.4 % (11.6-16.5); WHITE BLOOD COUNT 6.3 X10^3/uL (3.6-10.0)
[2017-04-04 05:56] LABS: ALANINE AMINOTRANSFERASE 16 Units/L (12-78); ALBUMIN 1.8 g/dL (3.4-5.0); ALKALINE PHOSPHATASE 51 Units/L (46-116); ASPARTATE AMINO TRANSFERASE 18 Units/L (15-37); BLOOD UREA NITROGEN 10 mg/dL (7-18); CALCIUM 7.3 mg/dL (8.5-10.1); CARBON DIOXIDE 28.7 mmol/L (21-32); CHLORIDE 111 mmol/L (98-107); COR CA(FOR HYPOALB) 9.1 mg/dL (8.5-10.1); CREATININE 0.67 mg/dL (0.70-1.30); GLUCOSE 95 mg/dL (65-99); SODIUM 146 mmol/L (136-145); TOTAL PROTEIN 4.8 g/dL (6.4-8.2); eGFR BLACK RACES > 60 (>60); eGFR NON BLACK RACES > 60 (>60)
[2017-04-04] MEDS: FORTAZ or TAZICEF INJ 1 GM in NS 50 ML IV + SPIKE MINIBAG* 50 ML IV SCH ×3 (06:05→23:22)
[2017-04-04] MEDS ORDERED: K-RIDER 10 MEQ/NS 100 ML 10 MEQ/100 ML BAG IV PRN ×2 (06:53→08:13)
[2017-04-04] MEDS ORDERED: K-LYTE EFFERVESCENT PO PRN ×2 (06:53→08:13)
[2017-04-04] MEDS ORDERED: K-DUR TAB 20 MEQ PO PRN ×2 (06:53→08:13)
[2017-04-04] MEDS ORDERED: POTASSIUM CHLORIDE LIQ 20 MEQ UDC PO PRN (06:53)
[2017-04-04] MEDS: AFATINIB DIMALEATE 40 MG PO SCH ×3 (07:00→08:48)
[2017-04-04] MEDS ORDERED: ZOFRAN INJ 4 MG VIAL IVP PRN (08:13)
[2017-04-04] MEDS ORDERED: PROVENTIL NEB TX 0.083% 2.5MG/ 3ML NEB PRN (08:13)
[2017-04-04] MEDS ORDERED: MAALOX or MYLANTA PO PRN (08:13)
[2017-04-04] MEDS: POTASSIUM CHLORIDE LIQ 20 MEQ UDC PO PRN (08:47)
[2017-04-04] MEDS: HYCODAN SYRUP PO SCH ×2 (08:47→20:21)
[2017-04-04] MEDS: LEVAQUIN PREMIX IV 500 MG 500 MG/100 ML BAG IV SCH (08:48)
[2017-04-04] MEDS: CELEXA PO SCH (08:48)
[2017-04-04] MEDS: ARIMIDEX PO SCH (08:49)
[2017-04-04] MEDS: PULMICORT NEB TX 0.5 MG NEB SCH ×2 (08:55→20:46)
[2017-04-04] MEDS: BROVANA IN SCH ×2 (08:55→20:46)
[2017-04-04] MEDS ORDERED: LIPITOR TAB 10 MG PO SCH (09:00)
[2017-04-04] MEDS: ATROVENT NEB TX 0.02% NEB SCH ×2 (11:33→17:16)
[2017-04-04] MEDS ORDERED: ATROVENT NEB TX 0.02% NEB SCH (12:00)
[2017-04-04] MEDS: LIPITOR TAB 10 MG PO SCH (20:21)
[2017-04-04] MEDS: REMERON PO SCH (20:21)
[2017-04-05] MEDS: ATROVENT NEB TX 0.02% NEB SCH ×5 (00:34→16:09)
[2017-04-05] MEDS: NS 1000 ML 1,000 ML IV SCH ×3 (01:32→17:19)
[2017-04-05] MEDS: FORTAZ or TAZICEF INJ 1 GM in NS 50 ML IV + SPIKE MINIBAG* 50 ML IV SCH ×3 (05:16→21:06)
[2017-04-05] MEDS: AFATINIB DIMALEATE 40 MG PO SCH (06:55)
[2017-04-05] MEDS: HYCODAN SYRUP PO SCH ×2 (08:51→21:05)
[2017-04-05] MEDS: CELEXA PO SCH (08:52)
[2017-04-05] MEDS: ARIMIDEX PO SCH (08:52)
[2017-04-05] MEDS: LEVAQUIN PREMIX IV 500 MG 500 MG/100 ML BAG IV SCH (08:54)
[2017-04-05] MEDS: BROVANA IN SCH ×2 (09:36→21:01)
[2017-04-05] MEDS: PULMICORT NEB TX 0.5 MG NEB SCH ×2 (09:37→21:44)
[2017-04-05] MEDS ORDERED: COLACE CAP 100 MG PO PRN (10:16)
[2017-04-05] MEDS ORDERED: MILK OF MAGNESIA PO PRN (10:16)
[2017-04-05] MEDS ORDERED: BUTT CREAM (COMPOUND) TOP PRN (15:32)
[2017-04-05] MEDS: LIPITOR TAB 10 MG PO SCH (21:05)
[2017-04-05] MEDS: REMERON PO SCH (21:06)
[2017-04-06] MEDS: ATROVENT NEB TX 0.02% NEB SCH ×3 (01:00→09:03)
[2017-04-06] MEDS: NS 1000 ML 1,000 ML IV SCH ×2 (03:12→08:37)
[2017-04-06 05:13] LABS: ALANINE AMINOTRANSFERASE 14 Units/L (12-78); ALBUMIN 1.9 g/dL (3.4-5.0); ALKALINE PHOSPHATASE 54 Units/L (46-116); ASPARTATE AMINO TRANSFERASE 12 Units/L (15-37); BLOOD UREA NITROGEN 4 mg/dL (7-18); CALCIUM 7.3 mg/dL (8.5-10.1); CARBON DIOXIDE 33.3 mmol/L (21-32); CHLORIDE 108 mmol/L (98-107); CREATININE 0.66 mg/dL (0.70-1.30); GLUCOSE 87 mg/dL (65-99); SODIUM 144 mmol/L (136-145); TOTAL PROTEIN 4.9 g/dL (6.4-8.2); eGFR BLACK RACES > 60 (>60); eGFR NON BLACK RACES > 60 (>60)
[2017-04-06] MEDS ORDERED: K-DUR TAB 20 MEQ PO PRN (05:17)
[2017-04-06] MEDS ORDERED: K-RIDER 10 MEQ/NS 100 ML 10 MEQ/100 ML BAG IV PRN (05:17)
[2017-04-06] MEDS ORDERED: POTASSIUM CHLORIDE LIQ 20 MEQ UDC PO PRN (05:17)
[2017-04-06] MEDS ORDERED: K-LYTE EFFERVESCENT PO PRN (05:17)
[2017-04-06 05:22] LABS: BASOPHILS % (AUTO) 0.1 % (0.2-1.0); EOSINOPHILS # (AUTO) 0.3 x10^3/uL (0.0-0.2); EOSINOPHILS % (AUTO) 6.2 % (0.9-2.9); HEMATOCRIT 29.1 % (42.0-54.0); HEMOGLOBIN 9.9 g/dL (13.5-18.0); LYMPHOCYTES # (AUTO) 0.7 X10^3/uL (1.3-2.9); LYMPHOCYTES % (AUTO) 13.6 % (21.0-51.0); MEAN CORPUSCULAR HEMOGLOBIN 25.9 pg (27.0-34.0); MEAN CORPUSCULAR VOLUME 76.2 fL (80.0-100.0); MEAN PLATELET VOLUME 6.6 fL (7.4-11.0); MONOCYTES # (AUTO) 0.4 x10^3/uL (0.3-0.8); MONOCYTES % (AUTO) 7.5 % (0.0-13.0); NEUTROPHILS # (AUTO) 3.5 x10^3/uL (2.2-4.8); NEUTROPHILS % (AUTO) 72.6 % (42.0-75.0); PLATELET COUNT 153 X10^3/uL (150.0-450.0); RED BLOOD COUNT 3.82 X10^6/uL (4.7-6.0); RED CELL DISTRIBUTION WIDTH 17.5 % (11.6-16.5); WHITE BLOOD COUNT 4.9 X10^3/uL (3.6-10.0)
[2017-04-06 05:54] LABS: HYPOCHROMASIA SLIGHT; MICROCYTOSIS SLIGHT; OVALOCYTES NOTED; PLATELET MORPHOLOGY COMMENT NORMAL (NORMAL)
[2017-04-06] MEDS: POTASSIUM CHLORIDE LIQ 20 MEQ UDC PO PRN (05:58)
[2017-04-06] MEDS: FORTAZ or TAZICEF INJ 1 GM in NS 50 ML IV + SPIKE MINIBAG* 50 ML IV SCH ×2 (05:59→13:59)
--- NOTE | 2017-04-06 06:19 | RAD ---
HISTORY: Follow up pneumonia Study: Chest two-view Comparison: April 03, 2017 Findings: There is a port present on the right. The heart is within normal limits in size. No congestive heart failure is noted. The right lung is clear. Once again noted is a large area of consolidation involv ing the left upper lobe. This likely represents the patient's known lung mass and surrounding infilt rate. There is poor visualization of the left posterior 6th rib. A destructive process cannot be exc luded. This could be better evaluated with CT. The left lower lobe is hyperinflated but clear. Pleur al-parenchymal scarring is present in the left lung base. IMPRESSION: Better visualization of a large area of consolidation posteriorly in the left upper lobe likely rela steffen to the patient's known lung mass and surrounding infiltrate Questionable destruction of the left posterior 6th rib which could be better evaluated with CT chest with contrast. Reported By:
[2017-04-06] MEDS ORDERED: AFATINIB DIMALEATE 40 MG PO SCH (06:30)
[2017-04-06] MEDS: ARIMIDEX PO SCH (08:34)
[2017-04-06] MEDS: HYCODAN SYRUP PO SCH (08:35)
[2017-04-06] MEDS: LEVAQUIN PREMIX IV 500 MG 500 MG/100 ML BAG IV SCH (08:36)
[2017-04-06] MEDS: CELEXA PO SCH (08:37)
[2017-04-06] MEDS: BROVANA IN SCH (09:03)
[2017-04-06] MEDS: PULMICORT NEB TX 0.5 MG NEB SCH (09:03)
[2017-04-06] MEDS ORDERED: LANTISEPTIC TOP PRN (10:16)
[2017-04-06 12:33] VITALS: BP 118/78
== END 2017-04-06 15:40 | disposition home or self-care (01) | DRG 190 ==
LOC: ER 14:42 → ICU 16:51 → MED/SURG 04-04 16:01
PROVIDERS: ADMIT Internal Medicine; ATTEND Obstetrics & Gynecology Obstetrics
DX: J44.1 Chronic obstructive pulmonary disease with (acute) exacerbation (principal); J18.9 Pneumonia, unspecified organism; C34.90 Malignant neoplasm of unspecified part of unspecified bronchus or lung; J20.9 Acute bronchitis, unspecified; R53.1 Weakness; E86.0 Dehydration; K52.89 Other specified noninfective gastroenteritis and colitis; R07.82 Intercostal pain; R94.31 Abnormal electrocardiogram [ECG] [EKG]; R06.02 Shortness of breath; R11.2 Nausea with vomiting, unspecified; R06.09 Other forms of dyspnea
CPT/HCPCS: 36415; 36600; 71010; 71020; 80053; 81001; 82550; 82553; 82803; 83880; 84132; 84484; 85025; 85610; 85730; 87040; 87086; 93005; 93010; 94640; 94760; 96365; 99284; 99285; A4216; A4222; S0170; J0713; J1956; J2405; J2930; J7620; J7626; J7644

== ENCOUNTER 2017-04-01 14:42 | Emergency (ER) | payer OTHER ==
[2017-04-02 06:08] VITALS: BP 99/64
== END 2017-04-01 16:49 | disposition other institution (70) ==
LOC: ER 14:42
DX: J44.1 Chronic obstructive pulmonary disease with (acute) exacerbation (principal); J20.8 Acute bronchitis due to other specified organisms; R06.09 Other forms of dyspnea; E86.0 Dehydration; R07.82 Intercostal pain; K52.89 Other specified noninfective gastroenteritis and colitis; C34.90 Malignant neoplasm of unspecified part of unspecified bronchus or lung
CPT/HCPCS: 36415; 71010; 80053; 82550; 82553; 83880; 84484; 85025; 85610; 85730; 87040; 93005; 93010; 94640; 94760; 96365; 99284; 99285; A4222; J7620